=== PATIENT | female | born 1960 | race Two or more races ===

== ENCOUNTER 2021-12-29 20:21 | Emergency (ER) | payer OTHER ==
[~2021-12-29] VITALS: Ht 170.2 cm; Wt 74.8 kg
--- NOTE | 2021-12-29 21:01 | NUR ---
BIBSEGENNY C/O DIZZINESS SINCE THE AM, GOING ON FOR THE PAST 2 MONTHS. AMBULATORY, AAOX4, PLACED ON BED, SEEN AND EXAMINED BY .
[2021-12-29] MEDS ORDERED: AMLO10TA4 PO ×2 (21:13→21:26)
--- NOTE | 2021-12-29 21:40 | NUR ---
Patient discharged to home in stable condition. Written and verbal after care instructions given. Patient verbalizes understanding of instruction.
[2021-12-29 21:42] VITALS: BP 175/85
== END 2021-12-29 21:40 | disposition home or self-care (01) ==
LOC: ER 20:33
DX: I10 Essential (primary) hypertension (principal); Z79.899 Other long term (current) drug therapy